=== PATIENT | female | born 1955 | race Caucasian/White ===

== ENCOUNTER 2018-07-16 10:29 | Emergency (ER) | payer MEDICAID ==
[~2018-07-16] VITALS: Ht 165.1 cm; Wt 79.4 kg
[~2018-07-16 10:29] MED LIST: CHOL100079 OR; CLON1TAB4 PO; CLOP75TA41 PO; GABA300C10 PO; GLUC1KIT IJ; LETR2.5T PO; LISI40TA PR; LORA-654 PO; OXYB10TA14 PO; SIMV-13 PO
[2018-07-16] MEDS ORDERED: KETOROLAC TROMETH 60MG/2ML VIAL IM ONE (11:00)
[2018-07-16 12:42] VITALS: BP 136/59
== END 2018-07-16 14:09 | disposition home or self-care (01) ==
LOC: ER 10:29
DX: M25.551 Pain in right hip (principal); I25.810 Atherosclerosis of coronary artery bypass graft(s) without angina pectoris; E11.9 Type 2 diabetes mellitus without complications; E78.5 Hyperlipidemia, unspecified; I10 Essential (primary) hypertension; I25.2 Old myocardial infarction; F17.210 Nicotine dependence, cigarettes, uncomplicated; Z79.899 Other long term (current) drug therapy; Z79.01 Long term (current) use of anticoagulants; Z95.1 Presence of aortocoronary bypass graft; Z90.710 Acquired absence of both cervix and uterus
CPT/HCPCS: 73502; 96372; 99283; J1885

== ENCOUNTER 2019-02-11 12:08 | Inpatient (IN) | payer MEDICAID ==
[~2019-02-11] VITALS: Ht 157.5 cm; Wt 83.7 kg
[~2019-02-11 12:08] MED LIST changes: +CLON1TAB10 PO; -CLON1TAB4 PO; -LORA-654 PO; +LORA0.5T12 PO
[2019-02-11 13:44] LABS: Basophils # (auto) 0.1 uL; Basophils % (auto) 0.9 % (0.0-2.0); Eosinophils # (auto) 0.2 uL; Eosinophils % (auto) 2.1 % (0.0-7.0); Lymphocytes # (auto) 1.8 uL; Lymphocytes % (auto) 24.7 % (10.0-50.0); Mean Corpuscular Hemoglobin 30.2 pg (28.0-32.0); Mean Corpuscular Hgb Conc. 34.3 g/dL (32.0-36.0); Monocytes # (auto) 0.7 uL; Monocytes % (auto) 9.4 % (0.0-12.0); Neutrophils # (auto) 4.6 uL; Neutrophils % (auto) 62.9 % (37.0-80.0); Platelet Count (auto) 161 10^3/uL (140-450); Red Blood Cells 4.32 10^6/uL (4.0-5.20); Red Cell Distribution Width 13.1 % (11.8-14.3); White Blood Cell 7.4 10^3/uL (4.4-10.8)
[2019-02-11 14:05] LABS: Albumin 3.5 g/dL (3.4-5.0); Calcium 9.2 mg/dL (8.5-10.1); Potassium 4.1 mmol/L (3.5-5.1)
[2019-02-11 14:09] LABS: BUN/Creatinine Ratio 19.8; Bilirubin, Total 0.4 mg/dL (0.2-1.0); Total Protein 7.3 g/dL (6.4-8.2)
[2019-02-11] MEDS ORDERED: SODIUM CHLORIDE 0.9% 1,000 ML IV ONE (14:32)
[2019-02-11] MEDS ORDERED: HYDROmorphone HCL 2 MG/ML VL IV ONE (15:30)
[2019-02-11] MEDS ORDERED: ONDANSETRON HCL 4 MG/2 ML VIAL IV ONE ×2 (15:30→17:45)
[2019-02-11] MEDS ORDERED: ETOMIDATE (2MG/ML) 20ML VIAL IV ONE (16:30)
[2019-02-11] MEDS ORDERED: MORPHINE SULF INJ 2 MG/ML SYRINGE 1ML IV ONE (17:45)
[2019-02-11] MEDS ORDERED: DEXTROSE (50%) 50ML SYRG IV PRN (19:00)
[2019-02-11] MEDS ORDERED: NITROGLYCERIN 0.4 MG SL TAB SL PRN (19:00)
[2019-02-11] MEDS ORDERED: ACETAMINOPHEN 500 MG TAB PO PRN (19:00)
[2019-02-11] MEDS ORDERED: MORPHINE SULF INJ 2 MG/ML SYRINGE 1ML IV PRN (19:00)
[2019-02-11] MEDS ORDERED: ONDANSETRON HCL 4 MG/2 ML VIAL IV PRN (19:00)
[2019-02-11] MEDS: MORPHINE SULF INJ 2 MG/ML SYRINGE 1ML IV PRN (20:39)
[2019-02-11 20:41] LABS: Urine Bacteria FEW /hpf (None Seen); Urine Blood TRACE /uL (Negative); Urine Specific Gravity 1.006 (1.001-1.035); Urine WBC 4 /hpf (0 - 5)
[2019-02-11 21:15] VITALS: BP 133/66
[2019-02-11] MEDS: InsuLIN REG 1unit/0.01ml Soln (100units/ml) SC SCH (22:00)
[2019-02-11] MEDS: CARVEDILOL 3.125 MG TAB PO SCH (22:05)
[2019-02-11] MEDS: GABAPENTIN 300 MG CAP PO SCH (22:06)
[2019-02-11] MEDS: ATORVASTATIN 20 MG TAB PO SCH (22:06)
[2019-02-11] MEDS: ACCU-CHEK COMFORT CURVE STRIP VI SCH (22:08)
[2019-02-11] MEDS ORDERED: ASPI-498 PO (22:57)
[2019-02-11] MEDS ORDERED: PERCOT PO (22:57)
[2019-02-12] MEDS: MORPHINE SULF INJ 2 MG/ML SYRINGE 1ML IV PRN ×3 (05:55→23:47)
[2019-02-12] MEDS: GABAPENTIN 300 MG CAP PO SCH ×3 (05:55→21:51)
[2019-02-12 06:00] VITALS: BP 142/90
[2019-02-12] MEDS: InsuLIN REG 1unit/0.01ml Soln (100units/ml) SC SCH ×7 (06:37→23:57)
[2019-02-12] MEDS: ACCU-CHEK COMFORT CURVE STRIP VI SCH ×5 (06:37→23:57)
[2019-02-12 08:50] VITALS: BP 162/62
[2019-02-12 09:22] LABS: Basophils # (auto) 0 uL; Basophils % (auto) 0.5 % (0.0-2.0); Eosinophils # (auto) 0.1 uL; Hematocrit 37.4 % (36.0-46.0); Hemoglobin 12.6 g/dL (12.2-16.2); Lymphocytes % (auto) 14.4 % (10.0-50.0); Mean Corpuscular Hemoglobin 29.7 pg (28.0-32.0); Mean Corpuscular Hgb Conc. 33.6 g/dL (32.0-36.0); Mean Corpuscular Volume 88.5 fL (80.0-100.0); Monocytes # (auto) 0.6 uL; Neutrophils # (auto) 5.4 uL; Neutrophils % (auto) 75.1 % (37.0-80.0); Platelet Count (auto) 136 10^3/uL (140-450); Red Blood Cells 4.23 10^6/uL (4.0-5.20); White Blood Cell 7.2 10^3/uL (4.4-10.8)
[2019-02-12 09:37] LABS: Calcium 8.5 mg/dL (8.5-10.1); Potassium 4.1 mmol/L (3.5-5.1)
[2019-02-12] MEDS: LISINOPRIL 20 MG TAB PO SCH (09:37)
[2019-02-12 09:38] LABS: INR 0.95 (0.9-1.15); Partial Thromboplastin Time 26.8 sec (23.64-32.05)
[2019-02-12] MEDS: FAMOTIDINE 20 MG TAB PO SCH (09:38)
[2019-02-12] MEDS: CARVEDILOL 3.125 MG TAB PO SCH ×2 (09:39→21:51)
[2019-02-12 09:40] LABS: BUN/Creatinine Ratio 17.3
--- NOTE | 2019-02-12 12:26 | NUR ---
BS-315 REGULAR INSULIN 8 UNITS GIVEN SQ PER SLIDING SCALE. PT WAS ASYMPTOMATIC. WILL CONTINUE TO MONITOR PT.
[2019-02-12 13:18] VITALS: BP 115/57
[2019-02-12] MEDS: HYDROcodone-ACET 5/325MG TAB PO PRN (13:40)
[2019-02-12 16:44] VITALS: BP 116/55
--- NOTE | 2019-02-12 17:15 | NUR ---
PT'S BS 438 AND WAS 478 WHEN RECHECKED. REGULAR INSULIN 10 UNITS GIVEN PER SLIDING SCALE AND HOSPITALIST INSPECTOR METAL FABRICATING WAS PAGED. PT WAS AAOX4 AND WAS ASYMPTOMATIC.
[2019-02-12] MEDS ORDERED: InsuLIN REG 1unit/0.01ml Soln (100units/ml) SC ONE (17:30)
[2019-02-12] MEDS ORDERED: DEXTROSE (50%) 50ML SYRG IV PRN (17:30)
--- NOTE | 2019-02-12 17:30 | NUR ---
DR. POSEY RETURNED CALL AND GAVE NEW ORDERS.
--- NOTE | 2019-02-12 18:45 | NUR ---
DR. OCASIO WAS IN TO SEE PT AND MD LEFT NO NEW ORDERS.
--- NOTE | 2019-02-12 19:30 | NUR ---
OPENING SHIFT NOTE RECEIVED REPORT FROM DAY SHIFT RN. PATIENT A/OX4, AMBULATORY. NO S/S OF DISTRESS OR SOB. CONTACT ISOLATION PRECAUTIONS IN PLACE. UPDATED PATIENT ON POC , VERBALIZED UNDERSTANDING. BED LOCKED IN LOWEST POSITION, CALL LIGHT WITHIN REACH. WILL CONTINUE TO MONITOR PATIENT Q1HR AND PRN.
[2019-02-12] MEDS ORDERED: InsuLIN REG 1unit/0.01ml Soln (100units/ml) IV ONE (20:30)
[2019-02-12 21:24] VITALS: BP 135/67
[2019-02-12] MEDS: ATORVASTATIN 20 MG TAB PO SCH (21:50)
[2019-02-12] MEDS: INSULIN LANTUS (GLARGINE) 1 /0.01ml (100units/ml) SC SCH (21:56)
[2019-02-13] MEDS: ACCU-CHEK COMFORT CURVE STRIP VI SCH ×6 (03:58→23:58)
[2019-02-13] MEDS: InsuLIN REG 1unit/0.01ml Soln (100units/ml) SC SCH ×6 (03:59→23:58)
[2019-02-13] MEDS: GABAPENTIN 300 MG CAP PO SCH ×3 (06:27→22:08)
[2019-02-13 09:00] VITALS: BP 146/71
[2019-02-13] MEDS: FAMOTIDINE 20 MG TAB PO SCH (09:21)
[2019-02-13] MEDS: LISINOPRIL 20 MG TAB PO SCH (09:23)
[2019-02-13] MEDS: CARVEDILOL 3.125 MG TAB PO SCH ×2 (09:24→22:09)
[2019-02-13] MEDS: HYDROcodone-ACET 5/325MG TAB PO PRN ×2 (09:25→14:56)
[2019-02-13] MEDS ORDERED: INSULIN LANTUS (GLARGINE) 1 /0.01ml (100units/ml) SC ONE (12:15)
[2019-02-13 13:00] VITALS: BP 138/74
[2019-02-13] MEDS ORDERED: CLOPIDOGREL BISULFATE 75 MG TAB PO ONE (13:30)
--- NOTE | 2019-02-13 15:23 | NUR ---
Discharge planning per [facility] consult, patient has an order for a quad cane -[id number], and home safety eval. Referral was sent to [facility] for the cane, and to [facility], whom when I placed a follow up call and spoke with Kindra, advised that they will accept the home health, and to [facility] for auth. Will follow up o 11.6.19 am for ETA on walker if not delivered today.
[2019-02-13 17:00] VITALS: BP 136/69
[2019-02-13] MEDS: MORPHINE SULF INJ 2 MG/ML SYRINGE 1ML IV PRN ×2 (17:45→23:52)
[2019-02-13 22:00] VITALS: BP 146/76
[2019-02-13] MEDS: INSULIN LANTUS (GLARGINE) 1 /0.01ml (100units/ml) SC SCH (22:00)
[2019-02-13] MEDS: ATORVASTATIN 20 MG TAB PO SCH (22:09)
[2019-02-14] MEDS: ACCU-CHEK COMFORT CURVE STRIP VI SCH ×3 (04:02→12:23)
[2019-02-14] MEDS: InsuLIN REG 1unit/0.01ml Soln (100units/ml) SC SCH ×3 (04:02→12:22)
[2019-02-14 05:00] VITALS: BP 157/73
[2019-02-14] MEDS: GABAPENTIN 300 MG CAP PO SCH ×2 (06:14→14:37)
[2019-02-14] MEDS: MORPHINE SULF INJ 2 MG/ML SYRINGE 1ML IV PRN ×2 (06:14→12:14)
[2019-02-14 09:00] VITALS: BP 146/69
--- NOTE | 2019-02-14 09:17 | NUR ---
Discharge planning per consult, patient has orders for home health and a cane. [facility] is accepting home health and [facility] was referred for the cane. Auths obtained from [facility]- [facility]-[id number], [facility]-[id number]. Cane was delivered to patient at bedside at approximately 7:05pm per notes from [facility] rep Buster, and Auth was provided to Vira at [facility]. Start of care will be within 24-48 hours upon discharge. Addendum: 02/14/19 at 0920 by BUSTER SANCHEZ Amended: Links added.
[2019-02-14] MEDS: FAMOTIDINE 20 MG TAB PO SCH (09:57)
[2019-02-14] MEDS: LISINOPRIL 20 MG TAB PO SCH (09:58)
[2019-02-14] MEDS: CARVEDILOL 3.125 MG TAB PO SCH (09:58)
[2019-02-14] MEDS ORDERED: CLOPIDOGREL BISULFATE 75 MG TAB PO SCH (10:00)
--- NOTE | 2019-02-14 11:25 | NUR ---
DR. GALLOWAY WAS IN TO SEE PT AND LEFT ORDER FOR PT'S DISCHARGE. PT AWARE OF SAME.
[2019-02-14] MEDS ORDERED: INSULIN LANTUS (GLARGINE) 1 /0.01ml (100units/ml) SC ONE ×2 (12:45→13:00)
[2019-02-14 13:00] VITALS: BP 141/64
[2019-02-14 16:27] VITALS: BP 141/64
--- NOTE | 2019-02-14 16:34 | NUR ---
assessment Patient is a 63 year old female who is alert and oriented. Patients cognitive abilities are intact. Prior to admission patient lived home with family and functioned independently. Patient informed me she is able to care for her own ADLs. Per patient she will return home to her prior living arrangements post discharge and family will transport her home. Patient informed me she tripped over a cord at home and fell. Patient broke her arm. Patient informed me she has good family support and will return home on discharge. Patient feels safe returning home. Patients PCP is Dr Stas Ma in [place]. Patient has no post discharge needs at this time. I informed patient she has a right to speak to a protective services social worker regarding all care. I informed patient she has a right to participate in any and all discharge planning. Patient does not have a POA and advanced directive. I have offered patient information on POA and advanced directives. I informed the patient the advantages and benefits of having an Advanced Directive. Patient verbalized understanding and agreed to discharge plan. Addendum: 02/14/19 at 1636 by Valencia SIMS Amended: Links added.
== END 2019-02-14 17:05 | disposition home or self-care (01) | DRG 342 ==
LOC: ER 12:10 → TELE 12:11 → TELE-EAST 21:31
PROVIDERS: ADMIT Nurse Practitioner Acute Care; ATTEND Internal Medicine
PROC: 0RSKXZZ Reposition Left Shoulder Joint, External Approach (ICD-10-PCS; principal; 2019-02-11)
DX: S43.015A Anterior dislocation of left humerus, initial encounter (principal); E11.22 Type 2 diabetes mellitus with diabetic chronic kidney disease; I50.22 Chronic systolic (congestive) heart failure; I13.0 Hypertensive heart and chronic kidney disease with heart failure and stage 1 through stage 4 chronic kidney disease, or unspecified chronic kidney disease; S42.292A Other displaced fracture of upper end of left humerus, initial encounter for closed fracture; E11.65 Type 2 diabetes mellitus with hyperglycemia; F17.210 Nicotine dependence, cigarettes, uncomplicated; J44.9 Chronic obstructive pulmonary disease, unspecified; E78.5 Hyperlipidemia, unspecified; N18.3 Chronic kidney disease, stage 3 (moderate); E66.9 Obesity, unspecified; I25.10 Atherosclerotic heart disease of native coronary artery without angina pectoris; W01.0XXA Fall on same level from slipping, tripping and stumbling without subsequent striking against object, initial encounter; Z95.1 Presence of aortocoronary bypass graft; Z79.4 Long term (current) use of insulin; Z85.3 Personal history of malignant neoplasm of breast; Z79.899 Other long term (current) drug therapy; I25.2 Old myocardial infarction; Z90.710 Acquired absence of both cervix and uterus; Z95.5 Presence of coronary angioplasty implant and graft; Z92.3 Personal history of irradiation; Y93.89 Activity, other specified; Y92.098 Other place in other non-institutional residence as the place of occurrence of the external cause; Y99.8 Other external cause status; Z79.02 Long term (current) use of antithrombotics/antiplatelets
CPT/HCPCS: 23650; 36415; 71045; 73020; 73030; 73060; 73070; 73200; 80048; 80053; 80061; 81001; 82962; 83036; 85025; 85610; 85730; 93005; 97116; 97163; 97530; G0378; J1815; J2405